=== PATIENT | female | born 1955 | race Hispanic/Latino ===

== ENCOUNTER → 2022-10-19 | Outpatient (CLI) | payer MEDICARE ==
[2022-10-19 09:44] LABS: CREATININE 0.8 mg/dL (0.5-1.5)
== END | disposition home or self-care (01) ==
LOC: LAB 09:09
PROVIDERS: ATTEND Student in an Organized Health Care Education/Training Program
DX: I10 Essential (primary) hypertension (principal)
CPT/HCPCS: 36415; 82565; 84520

== ENCOUNTER → 2022-11-03 | Outpatient (CLI) | payer MEDICARE ==
[~2022-11-03] MED LIST: IOHEXOL 350 MG/ML 100ML INFUS..BTL IV ONE; METOPROLOL TARTRATE 1 MG/ML 5ML VIAL IV ONE
== END | disposition home or self-care (01) ==
LOC: RAH 09:52
PROVIDERS: ATTEND Student in an Organized Health Care Education/Training Program
DX: R07.9 Chest pain, unspecified (principal)
CPT/HCPCS: 75574; J3490; Q9967

== ENCOUNTER → 2024-07-16 | Outpatient (CLI) | payer MEDICARE ==
[2024-07-16 16:22] LABS: CREATININE 1.1 mg/dL (0.5-1.0); POTASSIUM 4.6 mmol/L (3.5-5.1)
== END | disposition home or self-care (01) ==
LOC: LAB 13:44
PROVIDERS: ATTEND Student in an Organized Health Care Education/Training Program
DX: I48.0 Paroxysmal atrial fibrillation (principal)
CPT/HCPCS: 36415; 80048